=== PATIENT | female | born 1965 | race African-American/Black ===

== ENCOUNTER 2018-03-25 11:27 | Emergency (ER) | payer MEDICAID ==
[~2018-03-25] VITALS: Ht 165.1 cm; Wt 68.5 kg
[2018-03-25] MEDS ORDERED: KETOROLAC 60MG/2ML VIAL IM ONE (13:15)
[2018-03-25 16:28] VITALS: BP 148/93
== END 2018-03-25 16:28 | disposition home or self-care (01) ==
LOC: ER 11:27
DX: R51 Headache (principal); Z91.041 Radiographic dye allergy status; Z90.710 Acquired absence of both cervix and uterus; Z91.048 Other nonmedicinal substance allergy status
CPT/HCPCS: 96372; 99283; J1885

== ENCOUNTER 2023-01-09 16:43 | Emergency (ER) | payer BC, MEDICAID ==
[~2023-01-09] VITALS: Ht 172.7 cm; Wt 79.0 kg
[2023-01-09 17:01] VITALS: BP 142/97; RESP 20; TEMP 98.2; O2SAT 96
[2023-01-09 17:08] VITALS: PULSE 78
[2023-01-09] MEDS ORDERED: ASPIRIN 325MG EC TABLET PO ONE (17:30)
[2023-01-09 17:44] LABS: BASOPHILS % 0.8 % (0.0-2.0); DIFFERENTIAL COMMENT 0; EOSINOPHILS % 1.3 % (0.0-5.0); HEMATOCRIT. 40.6 % (36.0-48.0); HEMOGLOBIN. 13.3 g/dL (12.0-16.0); LYMPHOCYTES % 27.3 % (20.0-50.0); MEAN CORPUSCULAR HEMOGLOBIN 24.7 pg (28.0-32.0); MEAN CORPUSCULAR HGB CONC 32.9 g/dL (31.0-37.0); MEAN CORPUSCULAR VOLUME 75.3 fL (81.0-99.0); MEAN PLATELET VOLUME 9.1 fl (7.4-10.4); MONOCYTES % 9.8 % (2.0-8.0); NEUTROPHILS % 60.8 % (40.0-76.0); PLATELET 242 x1000/uL (130-400); RED BLOOD CELL COUNT 5.39 mill/uL (4.2-5.4); RED CELL DISTRIBUTION WIDTH 16.1 % (11.6-14.6)
[2023-01-09 17:48] LABS: CHLORIDE 107 mEq/L (98-107); INDEX HEMOLYSI 1 (1-3); INDEX ICTERIC 1 (1-4); INDEX LIPEMIC 1 (1-3); POTASSIUM 3.4 mEq/L (3.5-5.1); SODIUM 141 mEq/L (136-145)
[2023-01-09 17:59] LABS: ALANINE AMINOTRANSFERASE 51 IU/L (13-61); ALBUMIN 3.9 g/dL (3.4-5.0); ASPARTATE AMINOTRANSFERASE 35 IU/L (15-37); CALCIUM 9.3 mg/dL (8.5-10.1); CARBON DIOXIDE 28 mEq/L (21-32); CREATININE 0.9 mg/dL (0.6-1.3); GLUCOSE 88 mg/dL (70-105); NT PRO B-TYPE NATRIURETIC PEP 67 pg/mL (5-125); PROTEIN TOTAL 7.9 g/dL (6.0-8.3); TROPONIN I HIGH SENSITIVITY 15 ng/L (<54); UREA NITROGEN BLOOD 11 mg/dL (7-21)
[2023-01-09] MEDS ORDERED: BENZ100C86 MT (18:31)
== END 2023-01-09 18:43 | disposition home or self-care (01) ==
LOC: ER 16:43
DX: R07.89 Other chest pain (principal); Z20.822 Contact with and (suspected) exposure to COVID-19; Z91.041 Radiographic dye allergy status; Z91.048 Other nonmedicinal substance allergy status
CPT/HCPCS: 99285; 71046; 87426; 80053; 83880; 85025; 84484; 36415; 93005; C9803

== ENCOUNTER 2023-04-11 11:14 | Emergency (ER) | payer BC, MEDICAID ==
[~2023-04-11] VITALS: Ht 165.1 cm; Wt 72.6 kg
[~2023-04-11 11:14] MED LIST: BENZ100C86 MT
[2023-04-11 11:19] VITALS: O2SAT 98
[2023-04-11] MEDS ORDERED: KETOROLAC 30MG/ML VIAL IM ONE (12:15)
[2023-04-11] MEDS ORDERED: IBUPROFEN 600MG TABLET PO ONE (13:00)
[2023-04-11] MEDS ORDERED: NAPR-1176 MT (13:48)
[2023-04-11 14:42] VITALS: BP 144/90; PULSE 63; RESP 18; TEMP 98.1
== END 2023-04-11 14:45 | disposition home or self-care (01) ==
LOC: ER 11:14
DX: S80.02XA Contusion of left knee, initial encounter (principal); S80.01XA Contusion of right knee, initial encounter; E78.00 Pure hypercholesterolemia, unspecified; I10 Essential (primary) hypertension; Z91.041 Radiographic dye allergy status; Z98.890 Other specified postprocedural states; W01.0XXA Fall on same level from slipping, tripping and stumbling without subsequent striking against object, initial encounter; Y93.01 Activity, walking, marching and hiking; Y92.89 Other specified places as the place of occurrence of the external cause; Y99.8 Other external cause status
CPT/HCPCS: 73562; 99283